=== PATIENT | female | born 1985 | race Caucasian/White ===

== ENCOUNTER 2019-11-23 13:34 | Emergency (ER) | payer MEDICAID ==
[~2019-11-23] VITALS: Ht 167.6 cm; Wt 68.3 kg
--- NOTE | 2019-11-23 14:16 | NUR ---
FIRST CONTACT WITH PT. PT IS HERE FOR DETOX. HX CHF. LAST DRINK TODAY AROUND 1PM. PT C/O N/V. PT'S AOX4. RESPS EVEN AND UNLABORED. BP/SPO2 MONITORS IN PLACE. CALL LIGHT WITHIN REACH. PA AT BEDSIDE EVALUATING AT THIS TIME.
[2019-11-23] MEDS ORDERED: SODIUM CHLORIDE 0.9% 1,000ML IVBOLUS ONE (14:30)
[2019-11-23] MEDS ORDERED: THIAMINE 100MG TABLET PO ONE (14:30)
[2019-11-23] MEDS ORDERED: THIAMINE 100MG TABLET ONE (14:36)
--- NOTE | 2019-11-23 14:46 | NUR ---
piv est on l hand with no complications. pt medicated per emar. ns infusing at this time. pt tolerated well.
[2019-11-23 14:57] LABS: BASOPHILS # (AUTO) 0.03 x10^3/uL (0-0.1); BASOPHILS % (AUTO) 0 % (0-1); EOSINOPHILS % (AUTO) 1 % (1-7); LYMPHOCYTES # (AUTO) 2.78 x10^3/uL (1-3.4); LYMPHOCYTES % (AUTO) 39 % (22-44); MD NO; MEAN CORPUSCULAR HEMOGLOBIN 30.4 pg (27.0-34.8); MEAN CORPUSCULAR HGB CONC 33.5 g/dL (32.4-35.8); MEAN CORPUSCULAR VOLUME 90.9 fL (80-100); MEAN PLATELET VOLUME 9.1 fL (7.4-10.4); MONOCYTES % (AUTO) 7 % (2-9); NEUTROPHILS # (AUTO) 3.82 x10^3/uL (1.8-6.8); NEUTROPHILS % (AUTO) 53 % (42-75); PLATELET COUNT 298 x10^3/uL (130-400); RED BLOOD COUNT 4.74 x10^6/uL (3.82-5.3); RED CELL DISTRIBUTION WIDTH 13.1 % (9.6-15.2)
[2019-11-23 15:02] LABS: ALANINE AMINOTRANSFERASE 27 U/L (12-78); ALBUMIN 4.2 g/dL (3.4-5.0); ANION GAP 8 mmol/L (5-15); CALCIUM 8.4 mg/dL (8.5-10.1); CHLORIDE 112 mmol/L (98-107); CREATININE 0.83 mg/dL (0.55-1.02)
[2019-11-23 15:06] LABS: ALKALINE PHOSPHATASE 57 U/L (45-117); BILIRUBIN,TOTAL 0.5 mg/dL (0.2-1.0); TOTAL PROTEIN 8.1 g/dL (6.4-8.2)
--- NOTE | 2019-11-23 16:05 | NUR ---
pt's family member requesting sw. aysha notified.
--- NOTE | 2019-11-23 16:21 | NUR ---
sw at bedside at this time.
[2019-11-23 16:34] VITALS: BP 141/43
--- NOTE | 2019-11-23 16:59 | NUR ---
Patient given discharge instructions and they have confirmed that they understand the instructions. Patient ambulatory with steady gait.
== END 2019-11-23 17:00 | disposition home or self-care (01) ==
LOC: ED 14:18
DX: F10.220 Alcohol dependence with intoxication, uncomplicated (principal); F32.9 Major depressive disorder, single episode, unspecified; I50.9 Heart failure, unspecified; Y90.0 Blood alcohol level of less than 20 mg/100 ml
CPT/HCPCS: 36415; 80053; 83690; 84703; 85025; 96360; 96361; 99283; J7030

== ENCOUNTER 2020-04-14 06:19 | Emergency (ER) | payer MEDICAID ==
[~2020-04-14] VITALS: Ht 167.6 cm; Wt 68.0 kg
--- NOTE | 2020-04-14 06:43 | NUR ---
Patient presents to ER c/o swollen right side tonsil causing some diff swallowing. Patient had COVID /. Afterward developed a kidney infection which she just finished antiobiotics for. Patient has now developed current symptoms. Patient is anxious. Respirations even and unlabored. Right side of neck swollen. Patient is speaking in full sentences.
--- NOTE | 2020-04-14 06:46 | NUR ---
Report to [facility]. Patient care transferred.
[2020-04-14] MEDS ORDERED: DEXAMETHASONE 4 MG TABLET ONE (06:57)
[2020-04-14] MEDS ORDERED: HYDROcodone/APAP 7.5-325MG/15ML UDC ONE (06:57)
[2020-04-14] MEDS ORDERED: DEXAMETHASONE 4 MG/ML, 1ML PO ONE (07:00)
[2020-04-14] MEDS ORDERED: HYDROcodone/APAP 7.5-325MG/15ML UDC PO ONE (07:00)
[2020-04-14] MEDS ORDERED: DEXAMETHASONE 4 MG/ML, 1ML ONE (07:06)
[2020-04-14 07:10] VITALS: BP 119/67
--- NOTE | 2020-04-14 07:10 | NUR ---
PT MEDICATED PER MAY. PAIN 12/13. PT STATES SHE FEELS VERY ANXIOUS AND IS PACING THE ROOM. PT SETTLED BACK IN BED WITH CALL LIGHT. PT SIGNIFICANT OTHER BEDSIDE.
--- NOTE | 2020-04-14 07:57 | NUR ---
PT REC'VD DISCHARGE INSTRUCTIONS AND EDUCATION. PT HAD NO FURTHER QUESTIONS. PT AMBULATED TO DC AREA WITH SIGNIFICANT OTHER, STEADY GAIT.
== END 2020-04-14 08:00 | disposition home or self-care (01) ==
LOC: ED 07:49
DX: J02.8 Acute pharyngitis due to other specified organisms (principal); I50.9 Heart failure, unspecified; I44.7 Left bundle-branch block, unspecified
CPT/HCPCS: 87081; 87880; 93005; 99284; J1100

== ENCOUNTER 2020-06-11 23:51 | Emergency (ER) | payer MEDICAID ==
[~2020-06-11] VITALS: Ht 167.6 cm; Wt 71.0 kg
[2020-06-12] MEDS ORDERED: ONDANSETRON 2MG/ML, 2ML ONE (00:29)
[2020-06-12] MEDS ORDERED: ONDANSETRON 2MG/ML, 2ML IVPush ONE (00:30)
[2020-06-12] MEDS ORDERED: LORazepam 2 MG/ML, 1ML IVPush ONE (00:30)
[2020-06-12] MEDS ORDERED: SODIUM CHLORIDE 0.9% 1,000ML IVBOLUS ONE (00:30)
--- NOTE | 2020-06-12 00:30 | NUR ---
PT C/O COMING INTO ED TODAY D/T ANXIETY, N/V Q15 MINS AND CP. PT BROUGHT BACK TO ROOM, THROWING UP BILE AND FOAM, PT IV ESTABLISHED, LABS OBTAINED, WALKED TO AND FROM RESTROOM WITH A SMOOTH AND STEADY GAIT, UA OBTAINED AND SENT TO LAB. PT MEDICATED PER MAY, SO AT BS, BED IN LOWEST, RAILS ENGAGED, CALL LIGHT ON LAP, WCTM.
[2020-06-12] MEDS ORDERED: LORazepam 2 MG/ML, 1ML ONE (00:32)
[2020-06-12 00:44] LABS: BASOPHILS % (AUTO) 1 % (0-1); EOSINOPHILS % (AUTO) 0 % (1-7); LYMPHOCYTES % (AUTO) 16 % (22-44); MEAN CORPUSCULAR HEMOGLOBIN 32.3 pg (27.0-34.8); MEAN PLATELET VOLUME 10.2 fL (7.4-10.4); MONOCYTES % (AUTO) 4 % (2-9); NEUTROPHILS % (AUTO) 79 % (42-75); PLATELET COUNT 317 x10^3/uL (130-400); RED BLOOD COUNT 4.64 x10^6/uL (3.82-5.3)
--- NOTE | 2020-06-12 00:47 | NUR ---
BREAK RN: PT CURRENTLY SITTING ON GURC3DNA. NO ACUTE DISTRESS NOTED AT THIS TIME. PT APPEARS TO BE RESTING COMFORTABLY. SKIN PINK, WARM AND DRY. RESP EVEN AND UNLABORED. SIGNIFICANT OTHER AT BEDSIDE. PT ON CONT BP, CARDIAC AND SPO2 MONITORS. ICE CHIPS PROVIDED BY PRIMARY RN. CALL LIGHT WITHIN REACH.
[2020-06-12 00:56] LABS: ALANINE AMINOTRANSFERASE 39 U/L (12-78); ALBUMIN 4.5 g/dL (3.4-5.0); ANION GAP 13 mmol/L (5-15); CALCIUM 9.4 mg/dL (8.5-10.1); CHLORIDE 110 mmol/L (98-107); CREATININE 1.08 mg/dL (0.55-1.02)
[2020-06-12 00:59] LABS: MD NO
[2020-06-12 01:01] LABS: ALKALINE PHOSPHATASE 61 U/L (45-117); BILIRUBIN,TOTAL 0.5 mg/dL (0.2-1.0); TOTAL PROTEIN 8.4 g/dL (6.4-8.2); TROPONIN I < 0.015 ng/mL (0.000-0.045)
--- NOTE | 2020-06-12 01:45 | NUR ---
pt resting on gurney, appears slightly uncomfortable again, states the nausea is back, erp aware, pt medicated per marcin, nad, wctm. to be dc'd
[2020-06-12 02:00] VITALS: BP 133/83
[2020-06-12] MEDS ORDERED: METOCLOPRAMIDE 5 MG/ML, 2ML ONE (02:16)
[2020-06-12] MEDS ORDERED: METOCLOPRAMIDE 5 MG/ML, 2ML IVPush ONE (02:30)
--- NOTE | 2020-06-12 02:58 | NUR ---
Patient given discharge instructions and they have confirmed that they understand the instructions. Patient ambulatory with steady gait. nad, denies additional questions or needs, no personal belongings left in room after dc.
== END 2020-06-12 03:11 | disposition home or self-care (01) ==
LOC: ED 06-12 03:00
DX: K29.20 Alcoholic gastritis without bleeding (principal); R10.13 Epigastric pain; R11.2 Nausea with vomiting, unspecified; R07.89 Other chest pain; F10.129 Alcohol abuse with intoxication, unspecified; E86.0 Dehydration; Z72.9 Problem related to lifestyle, unspecified; I50.9 Heart failure, unspecified; Y90.0 Blood alcohol level of less than 20 mg/100 ml
CPT/HCPCS: 36415; 71045; 80053; 80320; 83690; 84484; 84703; 85025; 93005; 96361; 96374; 96375; 99284; J2060; J2405; J2765; J7030; G0480

== ENCOUNTER 2020-07-06 12:19 | Emergency (ER) | payer MEDICAID, OTHER ==
[~2020-07-06] VITALS: Ht 167.6 cm; Wt 67.1 kg
[2020-07-06] MEDS ORDERED: ONDANSETRON 2MG/ML, 2ML IVPush ONE (13:00)
[2020-07-06] MEDS ORDERED: SODIUM CHLORIDE 0.9% 1,000ML IVBOLUS ONE (13:00)
--- NOTE | 2020-07-06 13:06 | NUR ---
RLQ stabbing pain. Refused palpation in triage, states hurts worse with pressing on it. Drank ETOH for pain. at bedside. pt attached to monitors. vss. steady gait back from bathroom. Lavelle Goodrich evaluated.
[2020-07-06 13:26] LABS: MICROSCOPIC INDICATED
[2020-07-06] MEDS ORDERED: ONDANSETRON 2MG/ML, 2ML ONE (13:27)
[2020-07-06] MEDS ORDERED: MORPHINE SULFATE 4 MG/ML, 1ML ONE ×2 (13:27→14:27)
[2020-07-06] MEDS: MORPHINE SULFATE 4 MG/ML, 1ML IVPush PRN ×2 (13:31→14:31)
[2020-07-06 13:32] LABS: BASOPHILS % (AUTO) 1 % (0-1); EOSINOPHILS % (AUTO) 1 % (1-7); LYMPHOCYTES % (AUTO) 23 % (22-44); MEAN CORPUSCULAR HEMOGLOBIN 32.3 pg (27.0-34.8); MEAN CORPUSCULAR HGB CONC 33.9 g/dL (32.4-35.8); MEAN PLATELET VOLUME 8.7 fL (7.4-10.4); MONOCYTES % (AUTO) 6 % (2-9); NEUTROPHILS % (AUTO) 69 % (42-75); PLATELET COUNT 330 x10^3/uL (130-400); RED BLOOD COUNT 4.34 x10^6/uL (3.82-5.3); RED CELL DISTRIBUTION WIDTH 13.5 % (9.6-15.2)
[2020-07-06 13:44] LABS: ALANINE AMINOTRANSFERASE 46 U/L (12-78); ALBUMIN 4.3 g/dL (3.4-5.0); ANION GAP 9 mmol/L (5-15); CALCIUM 8.6 mg/dL (8.5-10.1); CHLORIDE 111 mmol/L (98-107); CREATININE 0.78 mg/dL (0.55-1.02)
[2020-07-06 13:49] LABS: ALKALINE PHOSPHATASE 62 U/L (45-117); TOTAL PROTEIN 8.3 g/dL (6.4-8.2)
[2020-07-06 13:53] LABS: BILIRUBIN,TOTAL 0.5 mg/dL (0.2-1.0)
--- NOTE | 2020-07-06 14:00 | NUR ---
US AT BEDSIDE. VSS. KHAN. AT BEDSIDE.
--- NOTE | 2020-07-06 14:33 | NUR ---
pt medicated for 8/10 pain per emar. vss. at bedside.
--- NOTE | 2020-07-06 14:44 | NUR ---
PT TO XRAY VIA ESTELA
[2020-07-06] MEDS ORDERED: MAALOX/HYOSCYAMINE/LIDOCAINE 45 ML BTL PO ONE (15:00)
[2020-07-06] MEDS ORDERED: KETOROLAC 30 MG/1 ML IVPush ONE (15:00)
[2020-07-06] MEDS ORDERED: MAALOX/HYOSCYAMINE/LIDOCAINE 45 ML BTL ONE (15:30)
[2020-07-06] MEDS ORDERED: KETOROLAC 30 MG/1 ML ONE (15:30)
--- NOTE | 2020-07-06 15:35 | NUR ---
PT MEDICATED FOR 8/10 PAIN. VSS. KHAN. AT BEDSIDE.
[2020-07-06 16:31] VITALS: BP 128/78
== END 2020-07-06 16:44 | disposition home or self-care (01) ==
LOC: ED 16:35
DX: K52.9 Noninfective gastroenteritis and colitis, unspecified (principal); R10.11 Right upper quadrant pain; R10.31 Right lower quadrant pain
CPT/HCPCS: 36415; 74021; 76700; 80053; 81001; 83690; 84703; 85025; 87086; 96361; 96374; 96375; 96376; 99285; J1885; J2270; J2405; J7030

== ENCOUNTER 2020-09-21 15:19 | Emergency (ER) | payer MEDICAID ==
[~2020-09-21] VITALS: Ht 167.6 cm; Wt 62.2 kg
[2020-09-21] MEDS ORDERED: METOCLOPRAMIDE 5 MG/ML, 2ML IVPush ONE (16:00)
[2020-09-21] MEDS ORDERED: SODIUM CHLORIDE 0.9% 1,000ML IVBOLUS ONE (16:00)
[2020-09-21] MEDS ORDERED: SODIUM CHLORIDE FLUSH 10ML SYR IVF ONE (16:00)
[2020-09-21] MEDS ORDERED: DIPHENHYDRAMINE 50 MG/ML, 1ML IVPush ONE (16:00)
[2020-09-21] MEDS ORDERED: KETOROLAC 30 MG/1 ML IVPush ONE (16:00)
[2020-09-21] MEDS ORDERED: PHENAZOPYRIDINE 200 MG TABLET PO ONE (16:00)
--- NOTE | 2020-09-21 16:21 | NUR ---
PT BIB BOYFRIEND VIA POV. PT STATES "I HAVE A UTI AND MY DOCTOR TOLD ME SHE THINKS I AM TURNING SEPTIC." PT C/O BILATERAL FLANK PAIN, PAINFUL URINATION, BLOOD IN URINE, VOMITING, FEVERS. PT RESTING IN GURNEY, MONITORING IN PLACE, PT CRYING AND YELLING AT THIS TIME, BOYFRIEND AT BEDSIDE. PT BEING EXTREMELY UNCOOPERATIVE. WCTM.
[2020-09-21] MEDS ORDERED: KETOROLAC 30 MG/1 ML ONE (16:28)
[2020-09-21] MEDS ORDERED: METOCLOPRAMIDE 5 MG/ML, 2ML ONE (16:28)
[2020-09-21] MEDS ORDERED: PHENAZOPYRIDINE 200 MG TABLET ONE (16:28)
[2020-09-21] MEDS ORDERED: DIPHENHYDRAMINE 50 MG/ML, 1ML ONE (16:28)
--- NOTE | 2020-09-21 16:35 | NUR ---
PT MEDICATED PER EMAR, PT ONLY ALLOWING TISSUE REWINDER TO PUT PIV IN FOOT, STATES "YOU DON'T KNOW ABOUT MY VEINS, YOU ONLY CAN GO IN MY FOOT". 22G PIV PLACED IN R FOOT BY EMT.
[2020-09-21 16:55] LABS: BASOPHILS % (AUTO) 0 % (0-1); EOSINOPHILS % (AUTO) 0 % (1-7); LYMPHOCYTES % (AUTO) 32 % (22-44); MEAN CORPUSCULAR HEMOGLOBIN 32.2 pg (27.0-34.8); MEAN CORPUSCULAR HGB CONC 34.3 g/dL (32.4-35.8); MEAN PLATELET VOLUME 10.2 fL (7.4-10.4); MONOCYTES % (AUTO) 7 % (2-9); NEUTROPHILS % (AUTO) 60 % (42-75); PLATELET COUNT 145 x10^3/uL (130-400)
[2020-09-21 16:55] LABS: MICROSCOPIC INDICATED
[2020-09-21 17:01] LABS: ALBUMIN 4.1 g/dL (3.4-5.0); ANION GAP 8 mmol/L (5-15); CALCIUM 8.6 mg/dL (8.5-10.1); CHLORIDE 106 mmol/L (98-107)
[2020-09-21 17:07] LABS: ALANINE AMINOTRANSFERASE 125 U/L (12-78); ALKALINE PHOSPHATASE 67 U/L (45-117); BILIRUBIN,TOTAL 0.6 mg/dL (0.2-1.0)
[2020-09-21 17:35] VITALS: BP 120/72
[2020-09-21] MEDS ORDERED: CEFTRIAXONE 1,000 MG in DEXTROSE 5% 50 ML IVPB ONE (18:00)
== END 2020-09-21 18:38 | disposition home or self-care (01) ==
LOC: ED 16:30
DX: N10 Acute pyelonephritis (principal); N30.00 Acute cystitis without hematuria; E87.6 Hypokalemia; I11.0 Hypertensive heart disease with heart failure; I50.9 Heart failure, unspecified; R11.2 Nausea with vomiting, unspecified; N93.9 Abnormal uterine and vaginal bleeding, unspecified
CPT/HCPCS: 36415; 80053; 81001; 84703; 85025; 87077; 87086; 96361; 96365; 96375; 99284; J0696; J1200; J1885; J2765; J7030; 87186